=== PATIENT | female | born 1945 | race Caucasian/White ===

== ENCOUNTER 2016-10-06 21:21 | Emergency (ER) | payer OTHER ==
[~2016-10-06] VITALS: Ht 165.1 cm; Wt 81.0 kg
[2016-10-06 21:23] VITALS: BP 155/88; PULSE 68; RESP 16; TEMP 98.9; O2SAT 98
[2016-10-06] MEDS ORDERED: VENTAER INH (23:00)
[2016-10-06] MEDS ORDERED: METF500T PO (23:00)
[2016-10-06] MEDS ORDERED: ACETAMINOPHEN/HYDROcodone 325 MG/5 MG TAB PO ONE (23:45)
--- NOTE | 2016-10-07 00:03 | RADRPT ---
EXAM DATE/TIME: 10/06/2016 23:45 [facility] COMPARISON: WRIST RIGHT COMPLETE ([id number]), October 06, 2016, 23:50. INDICATIONS : Fall. MEDICAL HISTORY : None. SURGICAL HISTORY : None. ENCOUNTER: Initial ACUITY: 1 day PAIN SCORE: 0/10 LOCATION: Right hand FINDINGS: There is severe osteoarthritis of the first interphalangeal joint and second through fifth distal int erphalangeal joints. No dislocation. Normal bone density. On the lateral view there is a ossific frag ment off the dorsal aspect of the wrist of uncertain origin. CONCLUSION: Osteoarthritis. Age indeterminate ossific fragment dorsal aspect of the wrist. Jona Nunez MD on October 07, 2016 at 0:00 Board Certified Radiologist. This report was verified electronically.
--- NOTE | 2016-10-07 00:04 | RADRPT ---
EXAM DATE/TIME: 10/06/2016 23:50 [facility] COMPARISON: HAND RIGHT COMPLETE ([id number]), October 06, 2016, 23:45. INDICATIONS : Fall. MEDICAL HISTORY : None. SURGICAL HISTORY : None. ENCOUNTER: Initial ACUITY: 1 day PAIN SCORE: 0/10 LOCATION: Right wrist FINDINGS: Normal lateral view there is a small ossific fragment measuring 6 mm in greatest dimension consistent with an age indeterminate ossific fragment or for dorsal aspect of the wrist, uncertain site of orig in. Normal bone density. CONCLUSION: Ossific fragment at the dorsal aspect of the wrist of uncertain origin or chronicity. Correlate for p oint tenderness. Jona Nunez MD on October 07, 2016 at 0:01 Board Certified Radiologist. This report was verified electronically.
--- NOTE | 2016-10-07 00:17 | RADRPT ---
EXAM DATE/TIME: 10/07/2016 00:05 [facility] COMPARISON: No previous studies available for comparison. INDICATIONS : Trauma. Fall. RADIATION DOSE: 37.54 CTDIvol (mGy) MEDICAL HISTORY : Cardiovascular disease. Hypertension. Diabetes mellitus type 2. SURGICAL HISTORY : Appendectomy. Hysterectomy. ENCOUNTER: Initial ACUITY: 1 day PAIN SCALE: 8/10 LOCATION: cranial TECHNIQUE: Multiple contiguous axial images were obtained of the head. Using automated exposure control and adj ustment of the mA and/or kV according to patient size, radiation dose was kept as low as reasonably a chievable to obtain optimal diagnostic quality images. FINDINGS: CEREBRUM: The ventricles are normal for age. No evidence of midline shift, mass lesion, hemorrhage or acute in farction. No extra-axial fluid collections are seen. POSTERIOR FOSSA: The cerebellum and brainstem are intact. The 4th ventricle is midline. The cerebellopontine angle i s unremarkable. EXTRACRANIAL: The visualized portion of the orbits is intact. SKULL: The calvaria is intact. No evidence of skull fracture. CONCLUSION: Normal examination. Jona Nunez MD on October 07, 2016 at 0:15 Board Certified Radiologist. This report was verified electronically.
--- NOTE | 2016-10-07 00:26 | PD ---
HPI Chief Complaint: Fall Time Seen by Provider: 23:15 Travel History International Travel<30 days: No Contact w/Intl Traveler<30days: No Traveled to known affect area: No History of Present Illness HPI 71-year-old female arrives to the ER after she experienced a fall several hours prior. She fell onto her right hand and struck her right forehead. A brief loss of consciousness occurred. Nausea and vomiting occurred as well. She was ambulatory afterwards. The patient went to [facility] for imaging was done however the wait was too long and so they came here. Pain is constant in the region of the right forearm/wrist. It's worse with palpation and range of motion. She has no paresthesia or loss of sensation. The fall was mechanical in nature. She landed on her he tripped over some bricks in her driveway area. PFSH Past Medical History Asthma: Yes Cardiovascular Problems: Yes (HTN) Diabetes: Yes Patient Takes Glucophage: Yes Hypertension: Yes Immunizations Current: Yes Influenza Vaccination: Yes Menopausal: Yes : 2 Para: 2 Past Surgical History Appendectomy: Yes Hysterectomy: Yes Other Surgery: Yes (5 sinus surgeries, 4 hernia surgeries) Social History Alcohol Use: No Tobacco Use: No Substance Use: No Allergies-Medications (Allergen,Severity, Reaction): Coded Allergies: Sulfa (Verified Allergy, Unknown, Swelling, 10/06/16) Reported Meds & Prescriptions Reported Meds & Active Scripts Active Reported Ventolin Hfa 18 GM Inh (Albuterol Sulfate) 90 Mcg/Act Aer 2 Puff INH Q4H PRN Metformin (Metformin HCl) 500 Mg Tab 500 Mg PO BIDPC With meals Review of Systems Except as stated in HPI: all other systems reviewed are Neg Physical Exam Narrative GENERAL: 71 yo F, WNWD, mild distress SKIN: Warm and dry. HEAD: Approx 4-5cm cephalohemtoma R forehead. Normocephalic. EYES: Pupils equal and round. No scleral icterus. No injection or drainage. ENT: No nasal bleeding or discharge. Mucous membranes pink and moist. NECK: Trachea midline. No JVD. CARDIOVASCULAR: Regular rate and rhythm. RESPIRATORY: No accessory muscle use. Clear to auscultation. Breath sounds equal bilaterally. GASTROINTESTINAL: Abdomen soft, non-tender, nondistended. Hepatic and splenic margins not palpable. MUSCULOSKELETAL: Extremities without clubbing, cyanosis, or edema. No obvious deformities. Ecchymosis, tenderness about DRUJ along radial aspect. NEUROLOGICAL: Awake and alert. No obvious cranial nerve deficits. Motor grossly within normal limits. Five out of 5 muscle strength in the arms and legs. Normal speech. PSYCHIATRIC: Appropriate mood and affect; insight and judgment normal. Data Data Last Documented VS Vital Signs Date Time Temp Pulse Resp B/P Pulse Ox O2 Delivery O2 Flow Rate FiO2 10/06/16 21:23 98.9 68 16 155/88 98 Room Air VS reviewed Orders Hand, Complete ([id number]) (10/06/16 23:24) Wrist, Complete ([id number]) (10/06/16 23:24) Ct Brain W/O Iv Contrast(Rout) (10/06/16 23:24) Acetamin-Hydrocod 325-5 Mg ([place] 5-325 (10/06/16 23:45) Splinting (10/07/16 ) MDM Medical Decision Making Medical Screen Exam Complete: Yes Emergency Medical Condition: Yes Differential Diagnosis ICH, radius fracture, ulna fracture, carpal bone fracture, scaphoid fracture Narrative Course Last 24 hours Impressions Wrist X-Ray 10/06/162323 Signed Impressions: Service Date/Time: Thursday, October 06, 2016 23:50 - CONCLUSION: Ossific fragment at the dorsal aspect of the wrist of uncertain origin or chronicity. Correlate for point tenderness. Jona Nunez MD Head CT 10/06/162323 Signed Impressions: Service Date/Time: Friday, October 07, 2016 00:05 - CONCLUSION: Normal examination. Jona Nunez MD Hand X-Ray 10/06/162323 Signed Impressions: Service Date/Time: Thursday, October 06, 2016 23:45 - CONCLUSION: Osteoarthritis. Age indeterminate ossific fragment dorsal aspect of the wrist. Jona Nunez MD R Thumb spica applied. Pain controlled. Pt agrees to follow up with hand within week for re-evaluation. Several hand surgeons in the area were provided as potential referrals. She denies any prior history of traumatic injury to the right hand such that today's imaging is somewhat inconclusive. She reports she has a large quantity of Lortab at home which she can take for pain as needed. Diagnosis Primary Impression: Fall Qualified Code: W19.XXXA - Fall, initial encounter Additional Impressions: Hand injury Qualified Code: S69.91XA - Hand injury, right, initial encounter Closed head injury Qualified Code: S09.90XA - Closed head injury, initial encounter Cephalohematoma Referrals: Eddi Payne III, MD 1 week Sneha Santiago MD, Srikanth MD Henry,Jacquie Dean MD Additional Instructions: You have a choice when it comes to health care, and we are glad that you chose [facility]. Hopefully, we have met your expectations on today's visit. You are welcome to return to [facility] at any time, as we are committed to meeting the health care needs of our community. Med/Other Pt SpecificInfo: No Change to Meds Disposition: 01 DISCHARGE HOME Condition: Mike Rainey MD Oct 07, 2016 00:25
== END 2016-10-07 01:56 | disposition home or self-care (01) ==
LOC: NEPC 21:21
DX: S06.2X1A Diffuse traumatic brain injury with loss of consciousness of 30 minutes or less, initial encounter (principal); S69.91XA Unspecified injury of right wrist, hand and finger(s), initial encounter; W18.09XA Striking against other object with subsequent fall, initial encounter; Y93.9 Activity, unspecified; Y92.008 Other place in unspecified non-institutional (private) residence as the place of occurrence of the external cause
CPT/HCPCS: 70450; 73110; 73130; 99284; L3808

== ENCOUNTER 2017-11-18 15:22 | Emergency (ER) | payer OTHER ==
[~2017-11-18] VITALS: Ht 165.1 cm; Wt 77.7 kg
[~2017-11-18 15:22] MED LIST: METF500T PO; VENTAER INH
[2017-11-18 15:26] VITALS: BP 155/79; PULSE 76; RESP 16; TEMP 97.7; O2SAT 97
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
[2017-11-18] MEDS ORDERED: METO25TA3 PO (16:02)
[2017-11-18] MEDS ORDERED: OXYB5TAB8 PO (16:02)
[2017-11-18] MEDS ORDERED: ASPI81TA16 PO (16:02)
[2017-11-18] MEDS ORDERED: PRAM0.5T PO (16:02)
[2017-11-18 16:33] LABS: AUTOMATED NEUTROPHIL # 5.4 TH/MM3 (1.8-7.7); BASOPHIL # 0.1 TH/MM3 (0-0.2); BASOPHIL % 0.7 % (0.0-2.0); EOSINOPHIL # 0.2 TH/MM3 (0-0.4); EOSINOPHIL % 2.6 % (0.0-4.0); HEMOGLOBIN 12.5 GM/DL (11.6-15.3); LYMPH % 21.6 % (9.0-44.0); LYMPHOCYTE # 1.7 TH/MM3 (1.0-4.8); MEAN CELL VOLUME 93.9 FL (80.0-100.0); MEAN CORPUSCULAR HEMOGLOBIN 30.9 PG (27.0-34.0); MEAN CORPUSCULAR HGB CONC 32.9 % (32.0-36.0); MEAN PLATELET VOLUME 10.1 FL (7.0-11.0); MONO % 6.8 % (0.0-8.0); MONOCYTE # 0.5 TH/MM3 (0-0.9); NEUT % 68.3 % (16.0-70.0); PLATELET COUNT 194 TH/MM3 (150-450); RED BLOOD COUNT 4.05 MIL/MM3 (4.00-5.30); WHITE BLOOD COUNT 7.9 TH/MM3 (4.0-11.0)
[2017-11-18 17:28] LABS: ALBUMIN 3.8 GM/DL (3.4-5.0); AST (GOT) 18 U/L (15-37); BICARBONATE 25.6 MEQ/L (21.0-32.0); BLOOD UREA NITROGEN 20 MG/DL (7-18); CALCIUM 8.9 MG/DL (8.5-10.1); CHLORIDE 108 MEQ/L (98-107); CREATININE 0.83 MG/DL (0.50-1.00); GLOMERULAR FILTRATION RATE 68 ML/MIN (>89); GLUCOSE,RANDOM 83 MG/DL (74-106); SODIUM (NA) 141 MEQ/L (136-145)
[2017-11-18 17:29] LABS: ALT (GPT) 22 U/L (10-53)
[2017-11-18 17:39] LABS: ALKALINE PHOSPHATASE 79 U/L (45-117); TOTAL BILIRUBIN ADULT 0.3 MG/DL (0.2-1.0); TOTAL PROTEIN 7.5 GM/DL (6.4-8.2)
== END 2017-11-18 18:21 | disposition left against medical advice (07) ==
LOC: NEPE 15:22
DX: F32.9 Major depressive disorder, single episode, unspecified (principal); F41.9 Anxiety disorder, unspecified; E11.9 Type 2 diabetes mellitus without complications; I10 Essential (primary) hypertension; Z79.84 Long term (current) use of oral hypoglycemic drugs; Z79.899 Other long term (current) drug therapy
CPT/HCPCS: 80053; 80307; 84443; 85025; 99283